=== PATIENT | female | born 1950 | race Caucasian/White ===

== ENCOUNTER 2017-01-07 05:16 | Day surgery (SDC) | payer MEDICARE, OTHER ==
[~2017-01-07 05:16] MED LIST: ASAB PO; ATEN25 PO; CELEXA20 PO; CITRACAL PO; CO Q-10100 MG PO; CYMBALTA20 PO; FLAXSEED OIL1000 MG PO; HUMALOG SC; KLONO1 PO; LANTUS SC; LEVOTHYROXIN75 MCG PO; LORTABLIQ PO; NAC 600 PO; PR25 PO; PREV30 PO; SUPER B COMP PO; ULTRAM50 PO; VISION VITAMIN PO; VITAMIN D400 UNI1 PO; [UNRECOGNIZED DRUG - OTHER] PO
[2017-01-08] MEDS ORDERED: VOLTAREN1 % TOP (11:59)
[2017-04-23] MEDS ORDERED: CELEXA20 PO (09:53)
[2017-04-23] MEDS ORDERED: MULTI-VIT HP PO (09:54)
[2017-04-23] MEDS ORDERED: CYANO1000T PO (09:54)
[2017-04-23] MEDS ORDERED: B12250T SL (09:55)
[2017-04-30] MEDS ORDERED: MSCONT15 PO (10:38)
[2017-04-30] MEDS ORDERED: NORCO1 TA2 PO (10:38)
== END 2017-01-07 08:35 | disposition home or self-care (01) ==
LOC: SDC 05:16
PROVIDERS: Orthopaedic Surgery
PROC: 3E0S3BZ Introduction of Anesthetic Agent into Epidural Space, Percutaneous Approach (ICD-10-PCS; 2017-01-07)
PROC: 3E0S33Z Introduction of Anti-inflammatory into Epidural Space, Percutaneous Approach (ICD-10-PCS; principal; 2017-01-07 08:15)
DX: M54.16 Radiculopathy, lumbar region (principal); I10 Essential (primary) hypertension; G47.30 Sleep apnea, unspecified; M19.90 Unspecified osteoarthritis, unspecified site; M48.06 Spinal stenosis, lumbar region; F32.9 Major depressive disorder, single episode, unspecified; G43.909 Migraine, unspecified, not intractable, without status migrainosus; Z91.041 Radiographic dye allergy status; Z88.8 Allergy status to other drugs, medicaments and biological substances; Z79.899 Other long term (current) drug therapy; Z98.890 Other specified postprocedural states; Z90.49 Acquired absence of other specified parts of digestive tract; Z98.51 Tubal ligation status; Z90.710 Acquired absence of both cervix and uterus; Z90.89 Acquired absence of other organs
CPT/HCPCS: J1040; J2250; J3010; Q9967

== ENCOUNTER 2017-01-21 05:14 | Day surgery (SDC) | payer MEDICARE, OTHER ==
[~2017-01-21 05:14] MED LIST changes: +VOLTAREN1 % TOP
[2017-04-23] MEDS ORDERED: CELEXA20 PO (09:53)
[2017-04-23] MEDS ORDERED: CYANO1000T PO (09:54)
[2017-04-23] MEDS ORDERED: MULTI-VIT HP PO (09:54)
[2017-04-23] MEDS ORDERED: B12250T SL (09:55)
[2017-04-30] MEDS ORDERED: MSCONT15 PO (10:38)
[2017-04-30] MEDS ORDERED: NORCO1 TA2 PO (10:38)
== END 2017-01-21 15:29 | disposition home or self-care (01) ==
LOC: SDC 05:14
PROVIDERS: Orthopaedic Surgery
PROC: 3E0S33Z Introduction of Anti-inflammatory into Epidural Space, Percutaneous Approach (ICD-10-PCS; principal; 2017-01-21 07:15)
DX: M54.16 Radiculopathy, lumbar region (principal); I10 Essential (primary) hypertension; G47.30 Sleep apnea, unspecified; Z90.49 Acquired absence of other specified parts of digestive tract; Z90.710 Acquired absence of both cervix and uterus; Z98.51 Tubal ligation status; Z88.8 Allergy status to other drugs, medicaments and biological substances; Z90.89 Acquired absence of other organs; Z98.890 Other specified postprocedural states
CPT/HCPCS: J1040; J2250; J3010